=== PATIENT | male | born 1965 | race Caucasian/White ===

== ENCOUNTER → 2021-04-15 | Outpatient (CLI) | payer BC | LOC: LAB FS 10:10 | PROVIDERS: ATTEND Orthopaedic Surgery Orthopaedic Surgery of the Spine | DX: Z01.812 Encounter for preprocedural laboratory examination (principal); Z20.822 Contact with and (suspected) exposure to COVID-19 | CPT/HCPCS: 87635 ==

== ENCOUNTER → 2021-06-22 | Outpatient (CLI) | payer BC ==
--- NOTE | 2021-06-22 09:24 | Diagnostic Imaging Report ---
PROCEDURE: MRI lumbar spine. TECHNIQUE: Multiplanar, multisequence MRI of the lumbar spine was performed without contrast. INDICATION: Back pain with bilateral lower extremity burning. FINDINGS: There is normal height and alignment of the lumbar vertebral bodies. There is mild degenerative disc and facet disease present with no focal disc herniation or bony stenosis seen at any level. No nerve root impingement is seen. There is no mass or acute bony abnormality. IMPRESSION: There are mild degenerative changes present with no disc herniation or bony stenosis seen. Dictated by: Dictated on workstation # [id number]
== END ==
LOC: RAD 08:23
PROVIDERS: ATTEND Orthopaedic Surgery Orthopaedic Surgery of the Spine
DX: M47.26 Other spondylosis with radiculopathy, lumbar region (principal)
CPT/HCPCS: 72148

== ENCOUNTER → 2021-09-30 | Outpatient (CLI) | payer BC ==
--- NOTE | 2021-09-30 13:28 | Diagnostic Imaging Report ---
EXAMINATION: Cervical spine CT from 09/30/2021. TECHNIQUE: Multiple contiguous axial images were obtained through the cervical spine without the use of intravenous contrast. Sagittal and coronal reformations were then performed. Auto Exposure Controls were utilized during the CT exam to meet ALARA standards for radiation dose reduction. INDICATION: Follow-up postsurgical fusion six months ago. COMPARISON: None. FINDINGS: There is postoperative change with anterior fusion extending from C5 through C7. Interbody devices at C5-C6 and C6-C7 are present. The orthopedic hardware appears intact. There is normal height and alignment of the vertebral bodies. No subluxations or acute fractures appreciated. Intervertebral disc space is fairly well maintained other than minimal narrowing at the C7-T1 level. Prevertebral soft tissues appear unremarkable. Visualized lung apices are clear. IMPRESSION: 1. Uncomplicated postoperative changes with no acute osseous abnormality appreciated. Dictated by: Dictated on workstation # [id number]
== END ==
LOC: RAD FS 09:58
PROVIDERS: ATTEND Physician Assistant
DX: Z98.1 Arthrodesis status (principal)
CPT/HCPCS: 72125